=== PATIENT | male | born 1975 | race Two or more races ===

== ENCOUNTER 2017-10-29 13:37 | Emergency (ER) | payer MEDICARE, MEDICAID ==
[~2017-10-29] VITALS: Ht 165.1 cm; Wt 86.2 kg
[2017-10-29 14:19] VITALS: BP 154/108
[2017-10-29] MEDS ORDERED: ACETAMINOPHEN ES 500 MG TABLET ONE (14:59)
[2017-10-29] MEDS ORDERED: ACETAMINOPHEN 325 MG TABLET PO ONE (15:00)
== END 2017-10-29 16:20 | disposition home or self-care (01) ==
LOC: ER 13:42
DX: S29.011A Strain of muscle and tendon of front wall of thorax, initial encounter (principal); G82.20 Paraplegia, unspecified; Z99.3 Dependence on wheelchair; V49.49XA Driver injured in collision with other motor vehicles in traffic accident, initial encounter; Y93.89 Activity, other specified; Y92.89 Other specified places as the place of occurrence of the external cause; Y99.8 Other external cause status
CPT/HCPCS: 71045; 99283; A4606; Z7610